=== PATIENT | male | born 1980 | race Caucasian/White ===

== ENCOUNTER 2024-09-21 10:22 | Emergency (ER) | payer SELFPAY ==
[~2024-09-21] VITALS: Ht 175.3 cm; Wt 77.0 kg
[2024-09-21 10:28] VITALS: O2SAT 99
[2024-09-21 10:31] VITALS: TEMP 36.7; O2SAT 100
[2024-09-21] MEDS ORDERED: BO1 TP (11:23)
[2024-09-21] MEDS ORDERED: CLIN-194 MT (11:23)
[2024-09-21 11:58] VITALS: BP 117/77; PULSE 71; RESP 18
[2024-09-21] MEDS: BACITRACIN ZINC OINT UDPKT TOP ONE (11:58)
[2024-09-21] MEDS: KETOROLAC 30MG/ML VIAL IM ONE (11:58)
[2024-09-21] MEDS: LIDOCAINE HCL 1% 20ML VIAL INFIL ONE (11:58)
[2024-09-21] MEDS: DOXYCYCLINE HYCLATE 100MG CAPSULE PO ONE (11:58)
== END 2024-09-21 12:19 | disposition home or self-care (01) ==
LOC: ER 10:22
DX: L73.2 Hidradenitis suppurativa (principal); M79.621 Pain in right upper arm; L02.411 Cutaneous abscess of right axilla; Z79.899 Other long term (current) drug therapy
CPT/HCPCS: 96372; 99283; J1885; Z7610; J2003